=== PATIENT | male | born 2000 | race Hispanic/Latino ===

== ENCOUNTER 2019-09-21 17:27 | Emergency (ER) | payer BC ==
[2019-09-21] MEDS ORDERED: NA CHLORIDE 0.9% 1,000 ML ONE (17:59)
[2019-09-21 18:12] LABS: Basophils % 0.4 % (0-1.3); Hematocrit 44.7 % (39.6-49.0); Lymphocytes % 10.4 % (15.3-44.8); MPV 7.8 fL (7.6-11.3); RBC Red Blood Cell Count 5.16 M/uL (4.33-5.43)
[2019-09-21 18:28] LABS: ALT/SGPT 10 U/L (12-78); AST/SGOT 11 U/L (15-37); Albumin 3.8 g/dL (3.4-5.0); Alkaline Phosphatase 70 U/L (45-117); BUN Blood Urea Nitrogen 9 mg/dL (7-18); Bicarbonate 29 mmol/L (21-32); Bilirubin Direct 0.1 mg/dL (0-0.2); Bilirubin Total 0.4 mg/dL (0.2-1.0); Glucose Level 113 mg/dL (74-106); Lipase 44 U/L (73-393); Potassium 3.5 mmol/L (3.5-5.1); Sodium Level 134 mmol/L (136-145)
--- NOTE | 2019-09-21 19:58 | ER ---
Nurse's Notes [facility] Name: Saji Patricio Jr Age: 19 yrs Sex: Male : 2000 Arrival Date: 09/21/2019 Time: 17:32 Bed 16 Private MD: Diagnosis: Vomiting, unspecified;Diarrhea, unspecified;Generalized abdominal pain Presentation: 09/21 17:33 Presenting complaint: Patient states: "I've been sick for the past couple of days, aj1 anything I eat or drink I just throw it up. My fever went away, but I'm having a lot of loose stools" Reports upper abdominal pain. Transition of care: patient was not received from another setting of care. Onset of symptoms was 2018. Risk Assessment: Do you want to hurt yourself or someone else? Patient reports no desire to harm self or others. Initial Sepsis Screen: Does the patient meet any 2 criteria? No. Patient's initial sepsis screen is negative. Does the patient have a suspected source of infection? No. Patient's initial sepsis screen is negative. Care prior to arrival: None. 17:33 Method Of Arrival: Ambulatory aj 17:33 Acuity: [place] 3 aj1 Triage Assessment: 17:36 General: Appears in no apparent distress. comfortable, Behavior is calm, cooperative, aj1 appropriate for age. Pain: Pain currently is 2 out of 10 on a pain scale. Neuro: Level of Consciousness is awake, alert, obeys commands. Cardiovascular: Patient's skin is warm and dry. Respiratory: Airway is patent Respiratory effort is even, unlabored, Respiratory pattern is regular, symmetrical. GI: Reports nausea, vomiting. Historical: - Allergies: 17:36 No Known Allergies; aj1 - Home Meds: 17:36 None [Active]; aj1 - PMHx: 17:36 None; aj1 - PSHx: 17:36 None; aj1 - Immunization history:: Flu vaccine is not up to date. - Social history:: Smoking status: Patient/guardian denies using tobacco. - Ebola Screening: : Patient denies travel to an Ebola-affected area in the 21 days before illness onset. Screenin:55 Abuse screen: Denies threats or abuse. Denies injuries from another. Nutritional ph screening: No deficits noted. Tuberculosis screening: No symptoms or risk factors identified. Fall Risk None identified. Assessment: 17:45 General: Appears in no apparent distress. comfortable, slender, well groomed, Behavior ph is calm, cooperative, appropriate for age. Pain: Complains of pain in epigastric area, right upper quadrant and left upper quadrant. Neuro: Level of Consciousness is awake, alert, obeys commands, Oriented to person, place, time, situation. Cardiovascular: Capillary refill < 3 seconds in bilateral fingers Patient's skin is warm and dry. Respiratory: Airway is patent Respiratory effort is even, unlabored, Respiratory pattern is regular, symmetrical. GI: Abdomen is flat, non-distended, Bowel sounds present X 4 quads. Abd is soft and non tender X 4 quads. Reports upper abdominal pain, diarrhea, nausea, vomiting. Derm: Skin is intact, Skin is pink, warm \\T\\ dry. Musculoskeletal: Circulation, motion, and sensation intact. Range of motion: intact in all extremities. 19:01 Reassessment: Patient appears in no apparent distress at this time. Patient and/or ph family updated on plan of care and expected duration. Pain level reassessed. Patient is alert, oriented x 3, equal unlabored respirations, skin warm/dry/pink. Pt resting comfortably, eating ice chips and tolerating well, awaiting mono results, VSS. 19:10 General: Appears in no apparent distress. comfortable, Behavior is calm, cooperative, ea appropriate for age. Pain: Denies pain. Neuro: Level of Consciousness is awake, alert, obeys commands, Oriented to person, place, time, situation. Cardiovascular: Patient's skin is warm and dry. Respiratory: Airway is patent Respiratory effort is even, unlabored, Respiratory pattern is regular, symmetrical. Derm: Skin is pink, warm \\T\\ dry. 20:21 Reassessment: Patient and/or family updated on plan of care and expected duration. Pain ea level reassessed. Patient is alert, oriented x 3, equal unlabored respirations, skin warm/dry/pink. Pt left ED ambulatory accompanied by family member. Pt tolerating well Patient denies pain at this time. Patient states feeling better. Vital Signs: 17:36 BP 132 / 78; Pulse 101; Resp 20; Temp 99.7; Pulse Ox 98% on R/A; Weight 54.43 kg (R); aj1 Height 5 ft. 4 in. (162.56 cm) (R); Pain 2/10; 19:02 BP 113 / 68; Pulse 83; Resp 16; Pulse Ox 99% on R/A; ph 19:45 BP 112 / 66; Pulse 82; Resp 18; Temp 97.8; Pulse Ox 99% ; ea 17:36 Body Mass Index 20.60 (54.43 kg, 162.56 cm) aj1 ED Course: 17:32 Patient arrived in ED. mr 17:35 Triage completed. aj1 17:36 Arm band placed on Patient placed in an exam room. aj1 17:38 Kaitlyn Crowell, RN is Primary Nurse. ph 17:39 Zaida Swanson FNP-C is PHCP. snw 17:39 Demetrio Shen MD is Attending Physician. snw 17:55 Inserted saline lock: 20 gauge in left antecubital area, using aseptic technique. Blood ph collected. 18:32 Patient has correct armband on for positive identification. Bed in low position. Call ph light in reach. Side rails up X 1. Pulse ox on. NIBP on. Door closed. Noise minimized. Warm blanket given. Head of bed elevated. 18:32 No provider procedures requiring assistance completed. ph 20:15 IV discontinued, intact, bleeding controlled, No redness/swelling at site. Pressure ea dressing applied. Administered Medications: 18:25 Drug: NS 0.9% 1000 ml Route: IV; Rate: 1 bolus; Site: left antecubital; ph 19:15 Follow up: Response: No adverse reaction; IV Status: Completed infusion; IV Intake: ea 1000ml 19:35 Drug: NS 0.9% 1000 ml Route: IV; Rate: 1 bolus; Site: left antecubital; ea Intake: 19:15 IV: 1000ml; Total: 1000ml. ea Outcome: 19:57 Discharge ordered by . snw 20:21 Discharged to home ambulatory, with family. ea 20:21 Condition: stable 20:21 Discharge instructions given to patient, Instructed on discharge instructions, follow up and referral plans. medication usage, Demonstrated understanding of instructions, follow-up care, medications, Prescriptions given X 2. 20:23 Patient left the ED. ea Signatures: Aparna Mejia RN RN aj1 Zaida Swanson FNP-C FNP-Afshin Nacho Cata Kaitlyn Crowell RN RN ph Heather Marin RN RN ea
--- NOTE | 2019-09-21 19:59 | EDPHYS ---
Physician Documentation [facility] Name: Saji Patricio Jr Age: 19 yrs Sex: Male : 2000 Arrival Date: 09/21/2019 Time: 17:32 Bed 16 Private MD: ED Physician Demetrio Shen HPI: 09/21 18:23 This 19 yrs old Male presents to ER via Ambulatory with complaints of snw Nausea/Vomiting. 18:23 The patient presents to the emergency department with nausea, vomiting, diarrhea. snw Onset: The symptoms/episode began/occurred suddenly, 2 day(s) ago, and became persistent. Possible causes: unknown. The symptoms are aggravated by food . Severity of symptoms: At their worst the symptoms were moderate severe in the emergency department the symptoms have improved mildly. The patient has not experienced similar symptoms in the past. The patient has not recently seen a physician. Historical: - Allergies: 17:36 No Known Allergies; aj1 - Home Meds: 17:36 None [Active]; aj1 - PMHx: 17:36 None; aj1 - PSHx: 17:36 None; aj1 - Immunization history:: Flu vaccine is not up to date. - Social history:: Smoking status: Patient/guardian denies using tobacco. - Ebola Screening: : Patient denies travel to an Ebola-affected area in the 21 days before illness onset. ROS: 18:23 Constitutional: Negative for fever, chills, and weight loss, Eyes: Negative for injury, snw pain, redness, and discharge, ENT: Negative for injury, pain, and discharge, Neck: Negative for injury, pain, and swelling, Cardiovascular: Negative for chest pain, palpitations, and edema, Respiratory: Negative for shortness of breath, cough, wheezing, and pleuritic chest pain, Back: Negative for injury and pain, : Negative for injury, bleeding, discharge, and swelling, MS/Extremity: Negative for injury and deformity, Skin: Negative for injury, rash, and discoloration, Neuro: Negative for headache, weakness, numbness, tingling, and seizure, Psych: Negative for depression, anxiety, suicide ideation, homicidal ideation, and hallucinations. 18:23 Abdomen/GI: Positive for abdominal pain, nausea, vomiting, and diarrhea, of the generalized. Exam: 18:24 Constitutional: This is a well developed, well nourished patient who is awake, alert, snw and in no acute distress. Head/Face: Normocephalic, atraumatic. Eyes: Pupils equal round and reactive to light, extra-ocular motions intact. Lids and lashes normal. Conjunctiva and sclera are non-icteric and not injected. Cornea within normal limits. Periorbital areas with no swelling, redness, or edema. ENT: Nares patent. No nasal discharge, no septal abnormalities noted. Tympanic membranes are normal and external auditory canals are clear. Oropharynx with no redness, swelling, or masses, exudates, or evidence of obstruction, uvula midline. Mucous membranes moist. Neck: Trachea midline, no thyromegaly or masses palpated, and no cervical lymphadenopathy. Supple, full range of motion without nuchal rigidity, or vertebral point tenderness. No Meningismus. Chest/axilla: Normal chest wall appearance and motion. Nontender with no deformity. No lesions are appreciated. Cardiovascular: Regular rate and rhythm with a normal S1 and S2. No gallops, murmurs, or rubs. Normal PMI, no JVD. No pulse deficits. Respiratory: Lungs have equal breath sounds bilaterally, clear to auscultation and percussion. No rales, rhonchi or wheezes noted. No increased work of breathing, no retractions or nasal flaring. Back: No spinal tenderness. No costovertebral tenderness. Full range of motion. Skin: Warm, dry with normal turgor. Normal color with no rashes, no lesions, and no evidence of cellulitis. MS/ Extremity: Pulses equal, no cyanosis. Neurovascular intact. Full, normal range of motion. Neuro: Awake and alert, GCS 15, oriented to person, place, time, and situation. Cranial nerves II-XII grossly intact. Motor strength 5/5 in all extremities. Sensory grossly intact. Cerebellar exam normal. Normal gait. Psych: Awake, alert, with orientation to person, place and time. Behavior, mood, and affect are within normal limits. 18:24 Abdomen/GI: Inspection: abdomen appears normal, Bowel sounds: active, Palpation: mild abdominal tenderness, in all quadrants. Vital Signs: 17:36 BP 132 / 78; Pulse 101; Resp 20; Temp 99.7; Pulse Ox 98% on R/A; Weight 54.43 kg (R); aj1 Height 5 ft. 4 in. (162.56 cm) (R); Pain 2/10; 19:02 BP 113 / 68; Pulse 83; Resp 16; Pulse Ox 99% on R/A; ph 19:45 BP 112 / 66; Pulse 82; Resp 18; Temp 97.8; Pulse Ox 99% ; ea 17:36 Body Mass Index 20.60 (54.43 kg, 162.56 cm) aj1 MDM: 17:39 Patient medically screened. chandra 19:58 Data reviewed: vital signs, nurses notes, lab test result(s). Data interpreted: Pulse snw oximetry: on room air is 99 %. Interpretation: normal. Counseling: I had a detailed discussion with the patient and/or guardian regarding: the historical points, exam findings, and any diagnostic results supporting the discharge/admit diagnosis, lab results, the need for outpatient follow up, for definitive care, to return to the emergency department if symptoms worsen or persist or if there are any questions or concerns that arise at home. Response to treatment: the patient's symptoms have mildly improved after treatment, the patient's symptoms have markedly improved after treatment. Special discussion: Based on the patient's Hx, exam, and Dx evaluation, there is no indication for emergent surgery or inpatient Tx. It is understood by the patient/guardian that if the Sx's persist or worsen they need to return immediately for re-evaluation. Based on the history and exam findings, there is no indication for further emergent testing or inpatient evaluation. I discussed with the patient/guardian the need to see the primary care provider for further evaluation of the symptoms. 09/21 17:40 Order name: Basic Metabolic Panel; Complete Time: 18:32 snw 09/21 17:40 Order name: CBC with Diff; Complete Time: 20:07 snw 09/21 17:40 Order name: Creatinine for Radiology; Complete Time: 18:28 snw 09/21 17:40 Order name: Hepatic Function; Complete Time: 18:32 snw 09/21 17:40 Order name: Lipase; Complete Time: 18:32 snw 09/21 17:40 Order name: IV Saline Lock; Complete Time: 18:25 snw 09/21 17:40 Order name: Labs collected and sent; Complete Time: 18:25 snw 09/21 18:22 Order name: Add On-Lab snw 09/21 19:32 Order name: [place] Screen; Complete Time: 19:56 EDMS 09/21 20:01 Order name: Manual Differential; Complete Time: 20:07 EDMS Administered Medications: 18:25 Drug: NS 0.9% 1000 ml Route: IV; Rate: 1 bolus; Site: left antecubital; ph 19:15 Follow up: Response: No adverse reaction; IV Status: Completed infusion; IV Intake: ea 1000ml 19:35 Drug: NS 0.9% 1000 ml Route: IV; Rate: 1 bolus; Site: left antecubital; ea Disposition: 09/22 07:23 Co-signature as Attending Physician, Demetrio Shen MD I agree with the assessment and chandra plan of care. Disposition: 09/21/19 19:57 Discharged to Home. Impression: Vomiting, unspecified, Diarrhea, unspecified, Generalized abdominal pain. - Condition is Stable. - Discharge Instructions: Abdominal Pain, Adult, Food Choices to Help Relieve Diarrhea, Adult, Diarrhea, Adult, Nausea and Vomiting, Adult, Hand Washing. - Prescriptions for Bentyl 20 mg Oral Tablet - take 1 tablet by ORAL route every 6 hours As needed; 20 tablet. promethazine 25 mg Oral Tablet - take 1 tablet by ORAL route every 6 hours As needed; 20 tablet. - Work release form, Medication Reconciliation Form, Thank You Letter, Antibiotic Education, Prescription Opioid Use form. - Follow up: Private Physician; When: 2 - 3 days; Reason: Recheck today's complaints, Continuance of care, Re-evaluation by your physician. Follow up: Emergency Department; When: As needed; Reason: Worsening of condition. Signatures: Dispatcher [employer] EDAparna Alvarado, RN RN aj1 Demetrio Shen MD MD cha Therrien, Shelly, [employer] Kaitlyn Crowell RN RN ph Antunez, Elena, RN RN ea Corrections: (The following items were deleted from the chart) 09/21 20:23 19:57 09/21/2019 19:57 Discharged to Home. Impression: Vomiting, unspecified; Diarrhea, ea unspecified; Generalized abdominal pain. Condition is Stable. Forms are Medication Reconciliation Form, Thank You Letter, Antibiotic Education, Prescription Opioid Use. Follow up: Private Physician; When: 2 - 3 days; Reason: Recheck today's complaints, Continuance of care, Re-evaluation by your physician. Follow up: Emergency Department; When: As needed; Reason: Worsening of condition. snw
[2019-09-21 20:02] LABS: Blood Morphology Comment NOT SEEN (NOT SEEN); Platelet Estimate ADEQ
[2019-09-21 21:35] VITALS: TEMP 99.7
[2019-09-21 21:36] VITALS: BP 113/68; O2SAT 99
== END 2019-09-21 20:23 | disposition home or self-care (01) ==
LOC: ER 17:27
DX: R19.7 Diarrhea, unspecified (principal); R10.84 Generalized abdominal pain
CPT/HCPCS: 85025; 80048; 36415; 86308; 80076; 83690; 96360; 99284; J7030